=== PATIENT | male | born 1990 | race Two or more races ===

== ENCOUNTER 2018-10-07 06:12 | Inpatient (IN) | payer OTHER ==
[2018-10-07 06:54] VITALS: BMI 46.3
[2018-10-07] MEDS ORDERED: MIDAZOLAM HCL 2 MG/2 ML SINGLE DOSE VIAL ONE (07:40)
[2018-10-07] MEDS ORDERED: BUPIVACAINE HCL/PF (5 MG/ML) 30 ML VIAL IJ ONE (07:40)
--- NOTE | 2018-10-07 07:56 | HP ---
Admitting History and Physical - Admission Chief Complaint: Morbid obesity History Source: Patient Limitations to Obtaining History: No Limitations - Past Surgical History Additional Past Surgical History: Exploratory laparotomy for perforated appendicitis, bowel resection - Advance Directives Advance Directives: Yes: Health Care Proxy - Smoking History Smoking history: Current some day smoker Have you smoked in the past 12 months: Yes - Alcohol/Substance Use Hx Alcohol Use: Yes (SOCIAL) Home Medications - Allergies Allergies/Adverse Reactions: Allergies Allergy/AdvReac Type Severity Reaction Status Date / Time shellfish derived Allergy Severe Rash Verified 10/02/18 17:14 - Home Medications Home Medications: Ambulatory Orders NK [No Known Home Medication] 10/02/18 Family Disease History - Family Disease History Family History: Denies Review of Systems - Review of Systems Constitutional: denies: Chills, Fever HENT: reports: No Symptoms Neck: reports: No Symptoms Cardiovascular: reports: No Symptoms Respiratory: reports: No Symptoms Gastrointestinal: reports: No Symptoms Neurological: reports: No Symptoms Pain Intensity: 0 Physical Examination Vital Signs: Vital Signs Temperature 99 F 10/07/18 06:52 Pulse Rate 91 H 10/07/18 06:52 Respiratory Rate 18 10/07/18 06:52 Blood Pressure 114/91 10/07/18 06:52 O2 Sat by Pulse Oximetry (%) Constitutional: Yes: Calm HENT: Yes: WNL Neck: Yes: WNL Cardiovascular: Yes: WNL Respiratory: Yes: Regular Gastrointestinal: Yes: Soft, Abdomen, Obese. No: Tenderness Neurological: Yes: Alert, Oriented Problem List - Problems (1) BMI 45.0-49.9, adult Code(s): Z68.42 - BODY MASS INDEX (BMI) 45.0-49.9, ADULT (2) Morbid obesity due to excess calories Code(s): E66.01 - MORBID (SEVERE) OBESITY DUE TO EXCESS CALORIES Assessment/Plan Laparoscopic possible open vertical sleeve gastrectomy possible liver biopsy, EGD
[2018-10-07] MEDS ORDERED: SUCCINYLCHOLINE CHLORIDE 200 MG/10 ML VIAL ONE (08:10)
[2018-10-07] MEDS ORDERED: PROPOFOL 20 ML ONE (08:10)
[2018-10-07] MEDS ORDERED: fentaNYL CITRATE 250 MCG/5 ML VIAL ONE ×2 (08:10→09:18)
[2018-10-07] MEDS ORDERED: ROCURONIUM BROMIDE 50 MG/5 ML VIAL ONE ×2 (08:11)
[2018-10-07] MEDS ORDERED: NEOSTIGMINE METHYLSULFATE 0.5 MG/ML - 10 ML MDV ONE (09:05)
[2018-10-07] MEDS ORDERED: GLYCOPYRROLATE 0.2 MG/1 ML VIAL ONE (09:06)
[2018-10-07] MEDS ORDERED: DEXAMETHASONE SOD PHOSPHATE 4 MG/1 ML VIAL ONE (09:06)
[2018-10-07] MEDS ORDERED: ceFAZolin SODIUM 1 GM VIAL ONE (09:06)
[2018-10-07] MEDS ORDERED: ONDANSETRON 4 MG/2 ML VIAL ONE ×2 (09:06→09:45)
[2018-10-07] MEDS ORDERED: BUPIVACAINE HCL/PF 2.5 MG/ML - 30 ML VIAL IJ ONE (09:21)
[2018-10-07] MEDS ORDERED: BUPIVACAINE HCL/PF 0.25% (2.5MG/ML) 10 ML VIAL IJ ONE (09:38)
[2018-10-07] MEDS ORDERED: METOCLOPRAMIDE HCL INJECTION 10 MG/2 ML VIAL ONE (09:45)
[2018-10-07] MEDS ORDERED: FAMOTIDINE 20 MG/50 ML IVPB 20 MG/50 ML MG IVPB ONE (09:45)
[2018-10-07] MEDS ORDERED: ACETAMINOPHEN INJECTION 100 ML IVPB ONE (09:46)
[2018-10-07] MEDS ORDERED: HYDROmorphone HCL CARPU-JECT 1 MG/1 ML DISP.SYRIN IVPB PRN (09:52)
--- NOTE | 2018-10-07 09:56 | OP ---
Operative Note - Note: Operative Date: 10/07/18 Pre-Operative Diagnosis: Morbid obesity. BMi 46.7 Operation: Diagnostic laparoscopy. Laparoscopic vertical sleeve gastrectomy. Laparoscopic wedge liver biopsy Post-Operative Diagnosis: Same as Pre-op (as well as hepatomegaly) Surgeon: Joel West Vocal Music Instructor: Mitchel Fletcher Anesthesia: General Specimens Removed: Greater curvature of stomach. Liver biopsy Estimated Blood Loss (mls): 30 Drains & Tubes with Location: 36 fr Bougie Operative Report Dictated: Yes
[2018-10-07] MEDS ORDERED: ACETAMINOPHEN 1000 MG/100 ML VIAL (NON FORMULARY) IVPB SCH (10:00)
[2018-10-07] MEDS: ONDANSETRON 4 MG/2 ML VIAL IVPUSH SCH ×5 (10:06→23:26)
[2018-10-07] MEDS: METOCLOPRAMIDE HCL INJECTION 10 MG/2 ML VIAL IVPUSH SCH ×4 (10:10→23:25)
[2018-10-07] MEDS ORDERED: FAMOTIDINE 20 MG PREMIXED IVPB IVPB ONE (10:20)
[2018-10-07 10:39] LABS: HEMATOCRIT 43.4 % (35.4-49); HEMOGLOBIN 14.6 GM/dl (11.7-16.9); MCH 30.8 pg (25.7-33.7); MCHC 33.8 g/dl (32.0-35.9); MEAN CELL VOLUME 91.3 fl (80-96); PLATELET COUNT 280 K/MM3 (134-434); RBC 4.75 M/mm3 (4.00-5.60); RDW 12.1 % (11.9-15.9); WHITE BLOOD COUNT 10.1 K/mm3 (4.0-10.8)
[2018-10-07 10:53] LABS: ALBUMIN 3.8 g/dl (3.4-5.0); ALK PHOS 73 U/L (45-117); ANION GAP 12 MMOL/L (8-16); BILIRUBIN,TOTAL 0.5 mg/dl (0.2-1); BLOOD UREA NITROGEN 14 mg/dl (7-18); CALCIUM 8.7 mg/dl (8.5-10); CHLORIDE 100 mmol/L (98-107); CO2 24 mmol/L (21-32); GLUCOSE,RANDOM 149 mg/dl (74-106); POTASSIUM 4.6 mmol/L (3.5-5.1); SGOT/AST 55 U/L (15-37); SGPT/ALT 54 U/L (13-61); SODIUM 136 mmol/L (136-145); TOT PROT 7.1 g/dl (6.4-8.2)
[2018-10-07] MEDS ORDERED: PROMETHAZINE HCL 25 MG/1 ML VIAL ONE (11:20)
[2018-10-07] MEDS: PROMETHAZINE HCL 25 MG/1 ML VIAL IVPUSH ONE ×3 (11:21→19:57)
[2018-10-07] MEDS: LABETALOL HCL 5 MG/1 ML (100MG/20 ML VIAL) ONE ×2 (11:30→11:48)
[2018-10-07] MEDS ORDERED: HYDROmorphone HCL CARPU-JECT 1 MG/1 ML DISP.SYRIN IVPUSH ONE (12:31)
[2018-10-07] MEDS ORDERED: LABETALOL HCL 5 MG/1 ML (100MG/20 ML VIAL) IVPUSH ONE ×2 (12:33→12:34)
[2018-10-07] MEDS: LACTATED RINGERS SOLUTION 1,000 ML IV SCH (14:04)
[2018-10-07] MEDS: ACETAMINOPHEN 1000 MG/100 ML VIAL (NON FORMULARY) IVPB SCH ×2 (16:59→23:24)
[2018-10-07] MEDS: SODIUM CHLORIDE 1,000 ML IV SCH (19:56)
[2018-10-07] MEDS: FAMOTIDINE 20 MG/50 ML IVPB 20 MG/50 ML MG IVPB SCH ×2 (19:57→21:46)
[2018-10-07] MEDS: ENOXAPARIN NA (PORCINE) 40 MG/0.4 ML DISP.SYRIN SQ SCH (21:45)
--- NOTE | 2018-10-08 02:35 | SPEC ---
DATE OF OPERATION: 10/07/2018 SURGEON: Nusrat West MD BOAT WORKER: Mitchel Fletcher MD PREOPERATIVE DIAGNOSES: 1. Morbid obesity. 2. Body mass index of 46.7. POSTOPERATIVE DIAGNOSES: 1. Morbid obesity. 2. Body mass index of 46.7. 3. Hepatomegaly. PROCEDURE: 1. Diagnostic laparoscopy. 2. Laparoscopic vertical sleeve gastrectomy. 3. Laparoscopic wedge liver biopsy. SPECIMEN: 1. Greater curvature of the stomach. 2. Liver biopsy. ESTIMATED BLOOD LOSS: 30 mL DRAINS: None. ANESTHESIA: GET. BOUGIE SIZE: 36 Arabic. REASON FOR PROCEDURE: This 27-year-old gentleman presents to the office for weight loss options. After describing the different options, he decided to proceed with laparoscopic possible open vertical sleeve gastrectomy, possible liver biopsy, and upper endoscopy. RISKS AND BENEFITS: After describing the different options for weight loss management, the patient decided to proceed with a laparoscopic, possible open vertical sleeve gastrectomy. The patient was seen by the respective subspecialties and cleared for surgery. The risks and benefits of the procedure were explained. These included bleeding, infection, hernia, GA, DVT, PE, injury to surrounding structures including the liver, colon, bowel, spleen, esophagus, vessel injury, nerve injury, weight regain, gastric leak, staple line leak, sleeve leak, obstruction, vitamin deficiency, hair loss and as some of the possible complications. The patient understood and signed informed consent. DESCRIPTION OF PROCEDURE: The patient was placed supine on the operating room table. The patient underwent general endotracheal intubation. The arms were brought out at 90 degrees and secured. A footboard was placed and the legs were secured laterally with padding. The abdomen was prepped and draped in the usual sterile fashion. A timeout was performed. An incision was made in the left upper quadrant and a Veress needle inserted. Pneumoperitoneum was established. Subsequently, the Veress needle was removed and a 5-mm trocar was placed under direct visualization with the laparoscope. The laparoscopic camera was then inserted and inspection of the abdominal cavity was performed. An incision was then made in the supraumbilical area and a 15-mm trocar was placed under direct visualization. A 5-mm trocar was then placed in the right upper quadrant and a 5-mm trocar was placed below the left subcostal margin. A stab wound was made in the subxiphoid area and a Marina clamp inserted and removed to dilate the tract. A Ayde liver retractor was inserted. The post was secured at the bedside by the nursing staff. The patient was placed in steep reverse Trendelenburg position and the Ayde liver retractor was used to secure the liver towards the anterior abdominal wall. The pylorus was identified and 6 cm proximal to it, the lesser sac was entered using the LigaSure device. All lateral attachments to the greater curvature of the stomach, including the short gastric vessels, were ligated using the LigaSure device toward the gastrosplenic and gastrophrenic ligaments. Once this was done in its entirety, it was confirmed that all tubes within the nasal or oropharyngeal cavity, including a temperature probe were removed by Anesthesia. The bougie was then inserted by Anesthesia. Transection of the stomach was then begun staying adjacent to the bougie but away from the angularis. Transection of the stomach was performed near the portion of the stomach where the lesser sac was entered. Two laparoscopic Endo-ASHER black haris were used at this location. Laparoscopic Endo ASHER purple staple loads were then used for the remainder of the transection until the greater curvature of the stomach was fully transected. This was done staying close to the bougie. Care was taken to stay away from the angle of His cephalad. The staple line was then inspected. Hemostasis was identified. A leak test was then performed. It was clamped distally to the staple line. Irrigation solution was placed in the left upper quadrant and air was insufflated by Anesthesia into the sleeve. No leaks were identified. No obstruction was identified. This was done through the entirety of the staple line. The stomach was suctioned and the bougie removed fully intact under direct visualization. At this point, the irrigation solution was suctioned and again, hemostasis was noted. The 15-mm supraumbilical trocar was then removed and the greater curvature specimen removed from the site using a sponge stick bhakta. A Dino-Melissa device was then used to close the fascia with a 0 Vicryl suture at the site. Again, hemostasis was noted. A wedge liver biopsy was then performed. The left lobe of the liver was identified. A portion of the edge of the left lobe of the liver was grasped. Using electrocautery, a wedge of the left liver was excised. The specimen was removed and sent off the field. Hemostasis of the wedge liver biopsy site was attained and noted using electrocautery. The Ayde liver retractor was then removed under direct visualization. Pneumoperitoneum was desufflated. Hemostasis was noted at all incision sites and Marcaine was injected at all incision sites. A 3-0 Vicryl suture was used to close the deep subcutaneous tissue at the 15-mm incision site. All incision sites were closed using 4-0 Biosyn. Sterile dressings were applied. The patient tolerated the procedure well and was transferred to the recovery room in stable condition. In addition, please note that due to a prior exploratory laparotomy for perforated appendicitis, at the beginning of the case, the initial Veress needle and incision was placed in the left subcostal margin. After pneumoperitoneum was established in this location, the remainder of the ports were placed and the surgery was continued as described. NUSRAT WEST M.D. [id number]
[2018-10-08] MEDS: ONDANSETRON 4 MG/2 ML VIAL IVPUSH SCH ×6 (03:27→22:16)
[2018-10-08] MEDS: ACETAMINOPHEN 1000 MG/100 ML VIAL (NON FORMULARY) IVPB SCH (06:06)
[2018-10-08] MEDS: METOCLOPRAMIDE HCL INJECTION 10 MG/2 ML VIAL IVPUSH SCH ×4 (06:07→22:16)
[2018-10-08 08:48] LABS: HEMATOCRIT 42.4 % (35.4-49); HEMOGLOBIN 14.1 GM/dl (11.7-16.9); MCH 30.2 pg (25.7-33.7); MCHC 33.3 g/dl (32.0-35.9); MEAN CELL VOLUME 90.8 fl (80-96); MEAN PLT VOLUME 8.7 fl (7.5-11.1); PLATELET COUNT 321 K/MM3 (134-434); RBC 4.68 M/mm3 (4.00-5.60); RDW 12.3 % (11.9-15.9); WHITE BLOOD COUNT 17.1 K/mm3 (4.0-10.8)
[2018-10-08 08:56] LABS: ALBUMIN 3.7 g/dl (3.4-5.0); ALK PHOS 61 U/L (45-117); ANION GAP 9 MMOL/L (8-16); BILIRUBIN,TOTAL 0.7 mg/dl (0.2-1); BLOOD UREA NITROGEN 11 mg/dl (7-18); CALCIUM 8.9 mg/dl (8.5-10); CHLORIDE 104 mmol/L (98-107); CO2 24 mmol/L (21-32); CREATININE 0.8 mg/dl (0.55-1.3); GLUCOSE,RANDOM 111 mg/dl (74-106); SGOT/AST 46 U/L (15-37); SGPT/ALT 50 U/L (13-61); SODIUM 137 mmol/L (136-145)
[2018-10-08] MEDS: FAMOTIDINE 20 MG/50 ML IVPB 20 MG/50 ML MG IVPB SCH ×2 (10:04→22:16)
[2018-10-08] MEDS: SODIUM CHLORIDE 1,000 ML IV SCH ×2 (10:04→12:00)
[2018-10-08] MEDS: ENOXAPARIN NA (PORCINE) 40 MG/0.4 ML DISP.SYRIN SQ SCH ×2 (10:04→22:15)
[2018-10-08] MEDS: LACTATED RINGERS SOLUTION 1,000 ML IV SCH (11:00)
[2018-10-08 15:02] LABS: BASO % 3.6 % (0-2.0); EOS % 0.4 % (0-4.5); HEMOGLOBIN 14.9 GM/dl (11.7-16.9); LYMPH % 11.8 % (8-40); MCH 30.9 pg (25.7-33.7); MEAN CELL VOLUME 90.9 fl (80-96); MEAN PLT VOLUME 7.9 fl (7.5-11.1); MONO % 11.1 % (3.8-10.2); NEUT % 73.1 % (42.8-82.8); PLATELET COUNT 290 K/MM3 (134-434); RBC 4.84 M/mm3 (4.00-5.60); WHITE BLOOD COUNT 16.1 K/mm3 (4.0-10.8)
--- NOTE | 2018-10-08 15:06 | PN ---
Progress Note (short form) - Note Progress Note: POD 1 Nausea/pain controlled Vital Signs Period Temp Pulse Resp BP Sys/Barragan Pulse Ox Last 24 Hr 98.1 F-99.8 F 68-79 18-20 124-155/58-84 94-99 CBC,CMP WBC 17.1 K/mm3 (4.0-10.8) H 10/08/18 07:55 RBC 4.68 M/mm3 (4.00-5.60) 10/08/18 07:55 Hgb 14.1 GM/dl (11.7-16.9) 10/08/18 07:55 Hct 42.4 % (35.4-49) 10/08/18 07:55 MCV 90.8 fl (80-96) 10/08/18 07:55 MCH 30.2 pg (25.7-33.7) 10/08/18 07:55 MCHC 33.3 g/dl (32.0-35.9) 10/08/18 07:55 RDW 12.3 % (11.9-15.9) 10/08/18 07:55 Plt Count 321 K/MM3 (134-434) 10/08/18 07:55 MPV 8.7 fl (7.5-11.1) 10/08/18 07:55 Sodium 137 mmol/L (136-145) 10/08/18 07:55 Potassium 4.0 mmol/L (3.5-5.1) 10/08/18 07:55 Chloride 104 mmol/L (98-107) 10/08/18 07:55 Carbon Dioxide 24 mmol/L (21-32) 10/08/18 07:55 Anion Gap 9 MMOL/L (8-16) 10/08/18 07:55 BUN 11 mg/dl (7-18) 10/08/18 07:55 Creatinine 0.8 mg/dl (0.55-1.3) 10/08/18 07:55 Creat Clearance w eGFR 117.79 (>60) 10/08/18 07:55 Random Glucose 111 mg/dl (74-106) H 10/08/18 07:55 Calcium 8.9 mg/dl (8.5-10) 10/08/18 07:55 Total Bilirubin 0.7 mg/dl (0.2-1) 10/08/18 07:55 AST 46 U/L (15-37) H 10/08/18 07:55 ALT 50 U/L (13-61) 10/08/18 07:55 Alkaline Phosphatase 61 U/L (45-117) D 10/08/18 07:55 Total Protein 7.0 g/dl (6.4-8.2) 10/08/18 07:55 Albumin 3.7 g/dl (3.4-5.0) 10/08/18 07:55 UGI: no leak/obstruction Clears Repeat CBC Problem List - Problems (1) BMI 45.0-49.9, adult Code(s): Z68.42 - BODY MASS INDEX (BMI) 45.0-49.9, ADULT (2) Morbid obesity due to excess calories Code(s): E66.01 - MORBID (SEVERE) OBESITY DUE TO EXCESS CALORIES
--- NOTE | 2018-10-08 15:12 | PN ---
Progress Note (short form) - Note Progress Note: POD1 s/p lap gastric sleeve. Doing well- no N/V, pain well controlled. No anesthetic issues/complications.
[2018-10-08] MEDS: oxyCODONE HCL 5 MG TABLET PO PRN (18:25)
[2018-10-09] MEDS: ONDANSETRON 4 MG/2 ML VIAL IVPUSH SCH ×3 (03:23→10:36)
[2018-10-09] MEDS: METOCLOPRAMIDE HCL INJECTION 10 MG/2 ML VIAL IVPUSH SCH ×2 (05:36→10:36)
[2018-10-09] MEDS: oxyCODONE HCL 5 MG TABLET PO PRN (06:23)
[2018-10-09 08:45] VITALS: TEMP 98
[2018-10-09] MEDS: ENOXAPARIN NA (PORCINE) 40 MG/0.4 ML DISP.SYRIN SQ SCH (09:37)
[2018-10-09] MEDS: FAMOTIDINE 20 MG/50 ML IVPB 20 MG/50 ML MG IVPB SCH (09:37)
[2018-10-09] MEDS: LACTATED RINGERS SOLUTION 1,000 ML IV SCH (09:38)
[2018-10-09] MEDS: SODIUM CHLORIDE 1,000 ML IV SCH (11:04)
[2018-10-09 12:54] VITALS: BP 135/70; PULSE 89
--- NOTE | 2018-10-09 14:05 | PATH ---
Surgical Pathology Report Patient Name: OBED GAONA Med. Rec. #: [id number] /Age/Gender: 1990 (Age: 27) / M Account: [id number] Location: [facility] MED-[facility]URG Taken: 10/07/2018 Received: 10/07/2018 Reported: 10/09/2018 Physicians: Joel West M.D. Specimen(s) Received A: GREATER CURVATURE STOMACH B: LIVER BIOPSY Clinical History Morbid obesity Final Diagnosis A. STOMACH, GREATER CURVATURE, LAPAROSCOPIC VERTICAL SLEEVE GASTRECTOMY: PORTION OF STOMACH WITH MILD CHRONIC GASTRITIS. IMMUNOHISTOCHEMICAL STAIN FOR H. PYLORI IS NEGATIVE. B. LIVER, BIOPSY: LIVER PARENCHYMA WITH MODERATE STEATOSIS (~50%). NO INCREASE IN IRON AND FIBROSIS ON PERFORMED SPECIAL STAINS (IRON AND TRICHROME). Electronically Signed Iveth Montemayor M.D. Gross Description A. Received in formalin, labeled "greater curvature of stomach," is a 100 gram, 18.5 x 3.0 x 3.0 cm. portion of stomach with a stapled margin of resection. The serosa is tomas-willett with minimal attached fat. The mucosa is tomas-red with normal folds. No mucosal masses are identified. Volunteer Fire Fighter sections are submitted in one cassette. B. Received in formalin labeled "liver biopsy," is a 3.3 x 2.3 x 1.6 cm tomas portion of soft tissue, consistent with a liver biopsy. A independent sales representative section is submitted in one cassette. /10/08/201810/08/2018
== END 2018-10-09 13:41 | disposition home or self-care (01) | DRG 403 ==
LOC: FM/S 06:12
PROVIDERS: ADMIT Surgery; ATTEND Surgery
PROC: 0WJP4ZZ Inspection of Gastrointestinal Tract, Percutaneous Endoscopic Approach (ICD-10-PCS; 2018-10-07)
PROC: 0DB64Z3 Excision of Stomach, Percutaneous Endoscopic Approach, Vertical (ICD-10-PCS; principal; 2018-10-07 08:43)
PROC: 0FD23ZX Extraction of Left Lobe Liver, Percutaneous Approach, Diagnostic (ICD-10-PCS; 2018-10-07 08:43)
DX: E66.01 Morbid (severe) obesity due to excess calories (principal); Z68.42 Body mass index [BMI] 45.0-49.9, adult; R16.0 Hepatomegaly, not elsewhere classified
CPT/HCPCS: 36415; 74241-TC-FY; 80053; 85025; 85027; 86803; 87389; 88305-TC; 94760; J0131; J7030